=== PATIENT | female | born 1995 | race Caucasian/White ===

== ENCOUNTER 2019-05-27 18:56 | Emergency (ER) | payer SELFPAY ==
[~2019-05-27] VITALS: Ht 160 cm; Wt 53.5 kg
--- NOTE | 2019-05-27 19:08 | NUR ---
ED Nurse Note: Pt came in due to burning sensation and urgency when she urinates x 2 days.Pt is AO x 4times, VSS, on room air no distress. CESARD seen Pt at bedside.
--- NOTE | 2019-05-27 19:20 | NUR ---
ED Nurse Note: Urine sample sent to lab.
--- NOTE | 2019-05-27 19:32 | Emergency Room Report ---
History of Present Illness General Chief Complaint: Female Urogenital Problems Source: Patient Present Illness HPI 24-year-old female with no significant medical history here complaining of 2 days of dysuria and urinary frequency. Patient reports that she has had recurrent UTIs in the past and is requesting a strong antibiotic. Patient denies hematuria, fever and chills, nausea vomiting. Has not taken medication for symptom relief. Denies vaginal discharge, or pruritus. Patient is currently not taking any control. Denies chest pain, shortness of breath , palpitation, no other associated symptoms. Also reports that she often gets a yeast infection after taking antibiotics. Requesting Diflucan. Allergies: Coded Allergies: No Known Allergies (Unverified , 05/27/19) Patient History Past Medical History: see triage record Past Surgical History: unable to obtain Pertinent Family History: none Last Menstrual Period: 05/27/19 Now: No Immunizations: UTD Reviewed Nursing Documentation: PMH: Agreed; PSxH: Agreed Nursing Documentation-PMH Past Medical History: No Stated History Review of Systems All Other Systems: negative except mentioned in HPI Physical Exam Vital Signs Date Time Temp Pulse Resp B/P (MAP) Pulse Ox O2 Delivery O2 Flow Rate FiO2 05/27/19 19:07 98.2 81 15 119/80 (93) 99 Room Air Sp02 EP Interpretation: reviewed, normal General Appearance: no apparent distress, alert, GCS 15, non-toxic Head: normocephalic, atraumatic Eyes: bilateral eye normal inspection, bilateral eye PERRL ENT: hearing grossly normal, normal pharynx, no angioedema, normal voice Neck: full range of motion, supple/symm/no masses Respiratory: chest non-tender, lungs clear, normal breath sounds, no rhonchi, no wheezing, speaking full sentences Cardiovascular #1: regular rate, rhythm, no edema, no murmur Gastrointestinal: normal inspection, non tender, soft, no mass, no peritonitis Rectal: deferred Genitourinary: no CVA tenderness Musculoskeletal: normal inspection, back normal, digits/nails normal, gait/ station normal Neurologic: alert, oriented x3, responsive, motor strength/tone normal, sensory intact, speech normal Psychiatric: judgement/insight normal, memory normal, mood/affect normal, no suicidal/homicidal ideation Skin: no rash Lymphatic: no adenopathy Medical Decision Making PA Attestation All diagnoses and treatment plans were reviewed and discussed with my supervising physician Dr. Bardales Diagnostic Impression: Primary Impression: UTI (urinary tract infection) ER Course 24-year-old female with no significant medical history here complaining of 2 days of dysuria and urinary frequency. Patient reports that she has had recurrent UTIs in the past and is requesting a strong antibiotic. Patient denies hematuria, fever and chills, nausea vomiting. Has not taken medication for symptom relief. Denies vaginal discharge, or pruritus. Patient is currently not taking any control. Denies chest pain, shortness of breath , palpitation, no other associated symptoms. Also reports that she often gets a yeast infection after taking antibiotics. Requesting Diflucan. Ddx considered but are not limited to: UTI, pyelonephritis, urinary incontinence , prolapsed bladder Vital signs: are WNL, pt. is afebrile H&PE are most consistent with: UTI uncomplicated ORDERS: UA, urine , Diflucan, Bactrim, Pyridium ED INTERVENTIONS: Pyridium, Bactrim DISCHARGE: At this time pt. is stable for d/c to home. Will provide printed patient care instructions, and any necessary prescriptions. Care plan and follow up instructions have been discussed with the patient prior to discharge. Diflucan was given due to possible yeast infection that may start after antibiotic intake advised the patient to start taking it after he is infection symptoms appear. Follow-up with a primary care provider for recurrent urinary tract infections. Return to emergency room if fever and chills, nausea vomiting. Last Vital Signs Date Time Temp Pulse Resp B/P (MAP) Pulse Ox O2 Delivery O2 Flow Rate FiO2 05/27/19 19:07 98.2 81 15 119/80 (93) 99 Room Air Disposition: HOME, SELF-CARE Condition: Stable Scripts Fluconazole (FLUCONAZOLE) 150 Mg Tablet 150 MG ORAL ONCE for 1 Day, #1 TAB 0 Refills Prov: Alvaro Meadows 05/27/19 Trimethoprim/Sulfamethoxazole 160/800* (BACTRIM DS TABLET*) 1 Each Tablet 1 TAB ORAL TWICE A DAY for 7 Days, #14 TAB Prov: Alvaro Meadows 05/27/19 Phenazopyridine Hcl* (PYRIDIUM*) 200 Mg Tablet 200 MG ORAL THREE TIMES A DAY for 2 Days, #6 TAB 0 Refills Prov: Alvaro Meadows 05/27/19 Referrals: NOT CHOSEN IPA/,REFERRING (PCP) Patient Instructions: Urinary Tract Infection Additional Instructions: Take medication as directed follow-up with your primary care provider due to your recurrent urinary tract infections. At this time Bactrim is 1 of the strongest antibiotics for UTI. Your request and due to your history of frequent urinary tract infections and not being responsive to Keflex Macrobid. Alvaro Meadows May 27, 2019 19:32
[2019-05-27] MEDS ORDERED: PHENAZOPYRIDIN200 MG ORAL (19:33)
[2019-05-27] MEDS ORDERED: BACTRIM DS TAB1 EAC1 ORAL (19:33)
[2019-05-27] MEDS ORDERED: Bactrim-DS 1 tab ORAL ONE (19:45)
[2019-05-27] MEDS ORDERED: Phenazopyridine 200mg tab ORAL ONE (19:45)
[2019-05-27 19:49] VITALS: BP 129/88
[2019-05-27] MEDS ORDERED: FLUCONAZOLE150 MG ORAL (19:54)
[2019-05-27 20:03] LABS: APPEARANCE,URINE CLEAR; BILIRUBIN, URINE NEGATIVE (NEGATIVE); GLUCOSE, URINE (UA) NEGATIVE (NEGATIVE); KETONES,URINE 4+ (NEGATIVE); LEUKOCYTE ESTERASE ,URINE 2+ (NEGATIVE); NITRITE,URINE NEGATIVE (NEGATIVE); PH,URINE 5 (4.5-8.0); PROTEIN,URINE 3+ (NEGATIVE); UROBILINOGEN,URINE NORMAL MG/DL (0.0-1.0)
[2019-05-27 20:21] LABS: COLOR,URINE YELLOW
[2019-05-27 20:54] VITALS: BP 124/80
[2019-05-27 20:55] VITALS: BP 124/80
--- NOTE | 2019-05-27 20:55 | NUR ---
ER DISCHARGE NOTE: Patient is cleared to be discharged per ERMD, pt is aox4, on room air, with stable vital signs. pt was given dc and prescription instructions, pt was able to verbalize understanding, pt id band removed without complications. pt is able to ambulate with steady gait with boyfriend. pt took all belongings.
== END 2019-05-27 20:56 | disposition home or self-care (01) ==
LOC: EMR 19:22
DX: N39.0 Urinary tract infection, site not specified (principal)
CPT/HCPCS: 81001; 81025; 87086; 99283

== ENCOUNTER 2019-05-31 01:11 | Emergency (ER) | payer SELFPAY ==
[~2019-05-31] VITALS: Ht 160 cm; Wt 53.5 kg
[~2019-05-31 01:11] MED LIST: BACTRIM DS TAB1 EAC1 ORAL; FLUCONAZOLE150 MG ORAL; PHENAZOPYRIDIN200 MG ORAL
--- NOTE | 2019-05-31 01:28 | NUR ---
ED Nurse Note: pt walked in to ED C/O vaginal pain. " it feeld like a knife is cutting inside my vagina". pt also states there is spotting. Pt is Alert x4. VSS
[2019-05-31 01:30] VITALS: BP 108/75
[2019-05-31 02:26] LABS: APPEARANCE,URINE CLEAR; BILIRUBIN, URINE 2+ (NEGATIVE); GLUCOSE, URINE (UA) NEGATIVE (NEGATIVE); KETONES,URINE 3+ (NEGATIVE); LEUKOCYTE ESTERASE ,URINE NEGATIVE (NEGATIVE); PH,URINE 6 (4.5-8.0); PROTEIN,URINE NEGATIVE (NEGATIVE); UROBILINOGEN,URINE 4 MG/DL (0.0-1.0)
[2019-05-31 02:28] LABS: COLOR,URINE YELLOW; NITRITE,URINE NEGATIVE (NEGATIVE)
[2019-05-31] MEDS ORDERED: Azithromycin 250mg tab ORAL ONE (02:30)
[2019-05-31] MEDS ORDERED: Lidocaine 1% MPF 10mg/ml 5ml INJ ONE (02:30)
[2019-05-31] MEDS ORDERED: Fluconazole 150mg tab ORAL ONE (02:45)
[2019-05-31] MEDS ORDERED: CLOTRIMAZOLE VA21 GM VAGIN (02:52)
[2019-05-31 03:15] VITALS: BP 112/75
--- NOTE | 2019-05-31 03:15 | NUR ---
ER DISCHARGE NOTE: Patient is cleared to be discharged per ERMD, pt is aox4, on room air, with stable vital signs. pt was given dc and prescription instructions, pt was able to verbalize understanding, pt id band and iv site removed without complications. pt is able to ambulate with steady gait. pt took all belongings.
--- NOTE | 2019-05-31 05:00 | Emergency Room Report ---
History of Present Illness General Chief Complaint: Female Urogenital Problems Source: Patient Present Illness HPI 24-year-old female presents ED for evaluation. States she is having some dysuria symptoms and vaginal pain for the last 4 days. States she was seen here on Monday and was noted to have a UTI. Was discharged on antibiotics and Pyridium but states her symptoms persist. States she has pain and burning sensation to the vagina. Dull, 8 out of 10, nonradiating. Denies vaginal bleeding or discharge. No other aggravating relieving factors. Denies any other associated symptoms Allergies: Coded Allergies: No Known Allergies (Unverified , 05/27/19) Patient History Past Medical History: none Past Surgical History: none Pertinent Family History: none Social History: Denies: smoking, alcohol use, drug use Last Menstrual Period: now Now: No Immunizations: UTD Reviewed Nursing Documentation: PMH: Agreed; PSxH: Agreed Nursing Documentation-PMH Past Medical History: No Stated History Review of Systems All Other Systems: negative except mentioned in HPI Physical Exam Vital Signs Date Time Temp Pulse Resp B/P (MAP) Pulse Ox O2 Delivery O2 Flow Rate FiO2 05/31/19 01:19 97.7 71 18 119/75 (90) 98 Room Air Sp02 EP Interpretation: reviewed, normal General Appearance: no apparent distress, alert, GCS 15, non-toxic Head: normocephalic, atraumatic Eyes: bilateral eye normal inspection, bilateral eye PERRL ENT: hearing grossly normal, normal pharynx, no angioedema, normal voice Neck: full range of motion, supple/symm/no masses Respiratory: chest non-tender, lungs clear, normal breath sounds, speaking full sentences Cardiovascular #1: regular rate, rhythm, no edema Cardiovascular #2: 2+ carotid (R), 2+ carotid (L), 2+ radial (R), 2+ radial (L) , 2+ dorsalis pedis (R), 2+ dorsalis pedis (L) Gastrointestinal: normal bowel sounds, non tender, soft, non-distended, no guarding, no rebound Rectal: deferred Genitourinary: no CVA tenderness, other - turret lathe operator present - vaginal erythema , no discharge, no CMT Musculoskeletal: back normal, gait/station normal, normal range of motion, non- tender Neurologic: alert, oriented x3, responsive, motor strength/tone normal, sensory intact, speech normal Psychiatric: judgement/insight normal, memory normal, mood/affect normal, no suicidal/homicidal ideation Reflexes: 3+ bicep (R), 3+ bicep (L), 3+ tricep (R), 3+ tricep (L), 3+ knee (R) , 3+ knee (L) Skin: normal color Lymphatic: no adenopathy Medical Decision Making Diagnostic Impression: Primary Impression: Vaginitis and vulvovaginitis ER Course Hospital Course 24-year-old female presents to ED complaining of vaginal irritation, dysuria. Differential diagnoses include: Cervicitis, UTI, yeast infection, STD Clinical course Patient placed on stretcher in ED. After initial history, physical exam reveals a female in no acute distress. Pelvic exam-turret lathe operator present, os is closed, no CMT, no adnexal tenderness. there is erythema to the vagina. No other discharge noted. No vaginal bleeding noted. Patient was seen here on had a UA which was positive. Discharged on Bactrim. Culture shows sensitivity to Bactrim. Encourage patient to continue her antibiotics. Did not fill her prescription for Diflucan. given Diflucan here consideration for vulvovaginitis. Will discharge with vaginal clotrimazole. Patient does have concern for potential STD she is having unprotected sex. No discharge noted. We will treat clinically with Rocephin/azithromycin. Will discharge to home. Patient does not have a PMD. Will provide referrals Diagnosis - vulvovaginitis Stable and discharged to home with clotrimazole. Followup with PMD/FIELD TRAINING MANAGER. Return to ED if symptoms recur or worsen Labs Test 05/31/19 01:35 Urine Color Yellow Urine Appearance Clear Urine pH 6 (4.5-8.0) Urine Specific [place] 1.015 (1.005-1.035) Urine Protein Negative (NEGATIVE) Urine Glucose (UA) Negative (NEGATIVE) Urine Ketones 3+ (NEGATIVE) Urine Blood 1+ (NEGATIVE) Urine Nitrite Negative (NEGATIVE) Urine Bilirubin 2+ (NEGATIVE) Urine Ictotest Negative (NEGATIVE) Urine Urobilinogen 4 MG/DL (0.0-1.0) Urine Leukocyte Esterase Negative (NEGATIVE) Urine RBC 2-4 /HPF (0 - 2) Urine WBC 0-2 /HPF (0 - 2) Urine Squamous Epithelial Cells Moderate /LPF (NONE/OCC) Urine Bacteria Few /HPF (NONE) Urine HCG, Qualitative Negative (NEGATIVE) Last Vital Signs Date Time Temp Pulse Resp B/P (MAP) Pulse Ox O2 Delivery O2 Flow Rate FiO2 05/31/19 03:15 98.0 75 16 112/75 98 Room Air Status: improved Disposition: HOME, SELF-CARE Condition: Stable Scripts Clotrimazole (Clotrimazole 3) 21 Gm Cream.appl 1 APPL VAGIN BEDTIME for 7 Days, #21 GM Prov: Edwardo Montez MD 05/31/19 Referrals: NOT CHOSEN IPA/,REFERRING (PCP) Ajay Gastelum Comp. [facility] [place] Patient Instructions: VagEdwardo Gloria MD May 31, 2019 05:00
== END 2019-05-31 03:15 | disposition home or self-care (01) ==
LOC: EMR 01:36
DX: N76.0 Acute vaginitis (principal)
CPT/HCPCS: 81003; 81025; 96361; 96372; 96374; 99284; J0696; J2405